=== PATIENT | female | born 1970 | race Two or more races ===

== ENCOUNTER → 2024-08-19 | Day surgery (SDC) | payer OTHER | END | disposition home or self-care (01) | LOC: JRADIR 09:06 | PROVIDERS: ATTEND Family Medicine | PROC: 0G9G3ZX Drainage of Left Thyroid Gland Lobe, Percutaneous Approach, Diagnostic (ICD-10-PCS; principal; 2024-08-19) | DX: E04.1 Nontoxic single thyroid nodule (principal) | CPT/HCPCS: 10005; 76942; 88173; 88305-TC ==

== ENCOUNTER 2025-07-02 00:49 | Emergency (ER) | payer OTHER ==
[2025-07-02 00:57] VITALS: BP 152/77; PULSE 76; RESP 19; TEMP 97.9; BMI 32.5
[2025-07-02] MEDS: ALBUTEROL SO4 2.5/IPRATROPIUM 0.5 INH SOL 3 ML VIAL.NEB. NEB SCH (02:18)
[2025-07-02] MEDS: methylPREDNISolone NA SUCC 125 MG/2 ML VIAL IVPB ONE (02:19)
[2025-07-02] MEDS ORDERED: methylPREDNISolone NA SUCC 125 MG/2 ML VIAL ONE (02:55)
[2025-07-02] MEDS ORDERED: ALBUTEROL SO4 2.5/IPRATROPIUM 0.5 INH SOL 3 ML VIAL.NEB. NEB ONE (02:55)
[2025-07-02 03:23] LABS: ABSOLUTE IMMATURE GRANULOCYTES 0.03 x10^3/uL (0.0-0.031); BASOPHILS # 0.06 x10^3/uL (0.01-0.08); EOSINOPHIL % 3.3 % (0.7-5.8); EOSINOPHILS # 0.32 x10^3/uL (0.04-0.36); MCHC 32.6 g/dl (32.2-35.5); MEAN CELL VOLUME 87.2 fl (79.4-94.8); MEAN PLT VOLUME 11.4 fl (9.4-12.3); MONOCYTE # 0.72 x10^3/uL (0.24-0.86); MONOCYTE % 7.5 % (4.7-12.5); RDW 13.2 % (12.3-16.6)
[2025-07-02 03:25] LABS: BG HCT 36.0 % (32.4-45.2); VENOUS BASE EXCESS 2.8 mmol/L (-2-2); VENOUS O2 SATURATION 94.3 % (70-80); VENOUS PCO2 41.7 mmHg (38-52); VENOUS PH 7.434 (7.310-7.410)
[2025-07-02 03:34] LABS: INR 1.01 (0.83-1.09); PROTHROMBIN TIME (PATIENT) 11.1 SEC (9.7-13.0)
[2025-07-02 03:36] LABS: ACTIVATED PTT 30.8 SECONDS (25.2-36.5)
[2025-07-02 04:04] LABS: GLUCOSE,RANDOM 111.0 mg/dL (74-106); TOT PROT 7.2 g/dl (6.4-8.2)
[2025-07-02 04:05] LABS: CO2 26.0 mmol/L (21-32)
[2025-07-02 04:06] LABS: ALK PHOS 89.0 U/L (40-150)
[2025-07-02 04:09] LABS: CREATININE 0.63 mg/dL (0.55-1.3); SGOT/AST 21.0 U/L (5-34); SGPT/ALT 19.0 U/L (0-55)
[2025-07-02 04:20] LABS: HCV DIAGNOSTIC IN-HOUSE W/RFLX NON-REACTIVE (NONREACTIVE)
[2025-07-02 04:21] LABS: HIV INTERPRETATION NEGATIVE (NEGATIVE)
[2025-07-02 07:43] LABS: N-TERMINAL BNP 132.3 pg/mL (0-299.9)
== END 2025-07-02 05:08 | disposition home or self-care (01) ==
LOC: JER 00:49
PROC: 3E033GC Introduction of Other Therapeutic Substance into Peripheral Vein, Percutaneous Approach (ICD-10-PCS; principal; 2025-07-02)
PROC: 3E0F7GC Introduction of Other Therapeutic Substance into Respiratory Tract, Via Natural or Artificial Opening (ICD-10-PCS; 2025-07-02)
DX: R06.02 Shortness of breath (principal)
CPT/HCPCS: 36415; 71046-TC-FY; 80053; 82803; 83735; 83880; 84484; 85025; 85610; 85730; 86803; 87389; 87637-QW; 93005; 93010; 99285-25